=== PATIENT | female | born 1965 | race Caucasian/White ===

== ENCOUNTER → 2018-01-17 09:12 | Outpatient (CLI) | payer OTHER, SELFPAY ==
--- NOTE | 2018-01-17 | DI.MRI.S_ITS ---
PROCEDURE: MR KNEE RT W CON INDICATIONS: MENISCAL TEAR TECHNIQUE: After the administration of 50 mL of dilute intra-articular Gadolinium contrast, sagittal T1 spin echo with fat saturation and PD fast spin echo with fat saturation, coronal T1 spin echo with and without fat saturation, coronal T2 fast spin echo with fat saturation, axial PD fast spin echo with fat saturation through the knee. COMPARISON: [facility], MR, MR KNEE RIGHT WITHOUT CONTRAST, 01/14/2017, 11:25. [facility], , [place] KNEE INJECTION MR/CT RT, 01/17/2018, 9:40. [facility] [place], CR, XR KNEE ARTHRITIC SERIES RT, 01/06/2018, 11:43. FINDINGS: Image quality: Excellent. Menisci: Lateral meniscus appears intact. There is absence of the posterior horn and posterior body of the medial meniscus an area of previous tear suggestive of postsurgical changes. There is mild fraying of the free margin of the medial meniscal body, however no definite intrasubstance gadolinium signal intensity. Cruciate ligaments: The anterior and posterior cruciate ligaments appear intact. Medial structures: The medial collateral ligament appears intact. The posterior oblique ligament, semimembranosus tendon insertions, oblique popliteal ligament, and meniscocapsular junction appear intact. Visualized portions of the pes anserinus tendons appear normal. No abnormal bursal fluid. Lateral structures: The lateral collateral ligament, long and short heads of the biceps femoris tendon appear intact. The popliteus tendon appears normal; the popliteofibular ligament appears intact. The posterosuperior and anteroinferior popliteomeniscal fascicles appear intact. The arcuate and fabellofibular ligaments appear intact around the lateral inferior geniculate artery. Iliotibial band appears normal. Anterior structures: The quadriceps tendon appears intact. Mild lateral patellar tendinopathy. There is also mild superficial infrapatellar subcutaneous edema. Patellar alignment is normal. No femoral trochlear dysplasia or ventral trochlear prominence. No edema in the infrapatellar fat pad. Bone and cartilage: No bone marrow contusions or fractures. The medial compartment, there is diffuse partial thickness loss and surface fraying of the femoral articular cartilage. The tibial cartilage appears grossly intact. Within the lateral compartment, no definite focal articular cartilage defects seen. Within the patellofemoral compartment, there is partial thickness loss of the cartilage overlying the lateral patellar facet and surface fraying of the femoral trochlear cartilage. int space: Innumerable irregular, linear and nodular foci seen involving the suprapatellar recess primarily within the medial aspect. Vega cyst is seen measuring approximately 8.5 cm in cephalocaudad dimension. IMPRESSION: Prominent ill-defined and nodular foci within the medial suprapatellar recess, suggesting severe synovitis and/or debris. Please correlate clinically. Postsurgical changes presumably related to partial medial meniscectomy. Fraying of the free margin of the body although no specific evidence of recurrent tear. Large Vega's cyst. Mild proximal patellar tendinopathy. 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 Dictated by: Marvin Gonzalez M.D. on 01/17/2018 at 12:34 Approved by: Marvin Gonzalez M.D. on 01/17/2018 at 12:55
--- NOTE | 2018-01-17 | DI.RAD.S_ITS ---
PROCEDURE: [place] KNEE INJECTION MR/CT RT INDICATIONS: MENISCAL TEAR TECHNIQUE: The indications, alternatives, benefits, risks, and complications of the procedure were explained to the patient. Written informed consent was obtained and placed in the chart. The knee was examined fluoroscopically, and a site chosen for knee joint injection. The skin was prepped and draped in a sterile fashion, and 1% Lidocaine infiltrated from the skin down to the articular surface. A hypodermic needle was then introduced into the joint and iodinated contrast media was instilled to confirm the intra-articular needle tip placement. This was followed by approximately 50 mL dilute solution of a gadolinium containing MR contrast agent. The needle was removed and a bandage was applied. An Earl wrap was then applied around the knee joint to keep the contrast from collecting in the suprapatellar recess. The patient experienced no complications throughout the procedure and left the fluoroscopic suite in no apparent distress. FINDINGS: Single fluoroscopic spot image demonstrates intra-articular location to injected iodinated contrast. IMPRESSION: Successful fluoroscopically guided administration of dilute Gadolinium solution into the knee joint for MR arthrogram. Dictated by: Marvin Gonzalez M.D. on 01/17/2018 at 13:06 Approved by: Marvin Gonzalez M.D. on 01/17/2018 at 13:07
== END ==
PROVIDERS: Family Provider Internal Medicine Gastroenterology; PCP Internal Medicine Gastroenterology; Visit Provider Orthopaedic Surgery
DX: M17.11 Unilateral primary osteoarthritis, right knee (principal); M71.21 Synovial cyst of popliteal space [Baker], right knee
CPT/HCPCS: 20610; 73722; 77002

== ENCOUNTER 2020-02-12 16:16 | Emergency (ER) | payer BC, SELFPAY ==
[2020-02-12 16:50] VITALS: BP 141/71; PULSE 76; RESP 16; TEMP 37.1; O2SAT 97
--- NOTE | 2020-02-12 16:58 | DI.CT.S_ITS ---
PROCEDURE: CT HEAD/BRAIN WO CON INDICATIONS: Covid +, now w/ visual field disturbance since 1200 02/11/20 TECHNIQUE: Noncontrast 4.5 mm thick angled axial sections acquired from the foramen magnum to the vertex, with coronal and sagittal reformats. For radiation dose reduction, the following was used: automated exposure control, adjustment of mA and/or kV according to patient size. COMPARISON: None. FINDINGS: Image quality: Excellent. CSF spaces: Basal cisterns are patent. No extra-axial fluid collections. Ventricles are normal in size and shape. Brain: No intracranial hemorrhage, mass, or mass effect. Paul-white matter interface appears preserved. Skull and face: Calvarium and visualized facial bones are intact, without suspicious lesions. Sinuses: Visualized sinuses and mastoids are clear. IMPRESSION: 1. No acute intracranial abnormality. Dictated by: Messi Kearns M.D. on 02/12/2020 at 17:24 Approved by: Messi Kearns M.D. on 02/12/2020 at 17:26
--- NOTE | 2020-02-12 17:14 | DI.RAD.S_ITS ---
PROCEDURE: XR CHEST 1V INDICATIONS: flu-like symptoms TECHNIQUE: One view of the chest was acquired. COMPARISON: None. FINDINGS: Surgical changes and devices: None. Lungs and pleura: There are a few patchy indistinct opacities in the lung bases. No pleural effusions or pneumothorax. Mediastinum: Mediastinal contours appear normal. Heart size is normal. Bones and chest wall: No suspicious bony lesions. There is a dextroscoliosis of the thoracolumbar spine. Overlying soft tissues appear unremarkable. IMPRESSION: 1. Patchy indistinct opacities in the lung bases suggestive of atypical pneumonia given clinical history. Dictated by: Messi Kearns M.D. on 02/12/2020 at 17:26 Approved by: Messi Kearns M.D. on 02/12/2020 at 17:27
[2020-02-12 18:04] LABS: Add Manual Diff / Slide Review NO; Basophils Absolute Auto 0 /uL (0-100); Basophils Percent Auto 0.7 % (0-2); Eosinophils Absolute Auto 100 /uL (0-450); Eosinophils Percent Auto 1.9 % (2-4); Hematocrit 41.4 % (36-46); Hemoglobin 14.2 g/dL (12.0-16.0); Lymphocytes Absolute Auto 2000 /uL (1100-4500); Lymphocytes Percent Auto 39.3 % (25-40); Mean Corpuscular HGB Conc 34.3 % (30-36); Mean Corpuscular Hemoglobin 30.3 PG (26-34); Mean Corpuscular Volume 88.2 fL (80-100); Monocytes Absolute Auto 300 /uL (0-900); Monocytes Percent Auto 5.5 % (3-14); Neutrophils Absolute Auto 2700 /uL (1500-7000); Neutrophils Percent Auto 52.6 % (50-75); Platelet Count 268 X10^3/uL (150-400); Red Cell Distribution Width 13.5 % (11.6-14.8); White Blood Cell Count 5.1 X10^3/uL (4.5-11.0)
[2020-02-12 18:13] LABS: INR 1.1 (0.9-1.3); Prothrombin Time 12.2 SECONDS (10.1-12.7)
[2020-02-12 18:15] LABS: PTT Partial Thromboplastin Tim 29 SECONDS (26.4-36.2)
[2020-02-12 18:18] LABS: Alanine Aminotransferase 42 IU/L (<35); Albumin 4.4 g/dL (3.5-5.0); Albumin Globulin Ratio 1.1 (1.0-2.8); Alkaline Phosphatase 66 U/L (38-126); Aspartate Aminotransferase 27 IU/L (14-36); BUN Creatinine Ratio 41.5 (6-22); Bilirubin Total 0.2 mg/dL (0.2-1.3); Blood Urea Nitrogen 22 mg/dL (7-17); Calcium 9.6 mg/dL (8.4-10.2); Carbon Dioxide 30 mmol/L (22-32); Chloride 105 mmol/L (98-107); Creatine Kinase 37 U/L (30-135); Estimated Glomerular Filt Rate > 60.0 mL/min (>60); Glucose 106 mg/dL (70-100); HEMOLYSIS < 15 (0-50); Potassium 3.2 mmol/L (3.4-5.1); Sodium 140 mmol/L (137-145); Total Protein 8.4 g/dL (6.3-8.2)
[2020-02-12 18:20] LABS: C-Reactive Protein Quant 0.7 mg/dL (<1.0); Lactate (Lactic Acid) 1.2 mmol/L (0.7-2.1)
[2020-02-12 18:23] LABS: D Dimer 401 ng/mL (<230)
[2020-02-12 18:27] LABS: NT-proBNP (BNP-Adult 18+) 27 pg/mL (<125)
[2020-02-12 18:30] LABS: Troponin I < 0.012 ng/mL (0.01-0.034)
[2020-02-12 18:53] LABS: Ferritin 100 ng/mL (11-264)
--- NOTE | 2020-02-12 19:29 | ED.NEUROSD ---
HPI - Neuro Symptoms/Deficit General Chief Complaint: Neuro Symptoms/Deficit Stated Complaint: COVID POSTIVE RIGHT SIDE VISION TROUBLE Time Seen by Provider: 02/12/20 18:00 Source: patient Mode of arrival: Ambulatory Limitations: no limitations History of Present Illness HPI Narrative: Patient is a 54-year-old female. Wears corrective lenses however has not had any other surgical intervention to her eye here for evaluation of which she describes as a blurry vision in her right eye. States the symptoms started yesterday. She does not remember exactly what she was doing at the time of the onset however she does not remember going from light to dark were dark to light. She states that is on the extreme peripheral vision in her right eye. His difficult for her to describe what they sensation is. She initially stated that it was flashes of light and then also described it as a blurriness. She states she has been using her phone to try to evaluate the symptoms. However She states that when she places the phone to her extreme right peripheral vision that it does not look blurry. She denies any headaches. No skin changes. No chest pain. No shortness of breath. She did test positive for COVID 8 days ago. She contacted the ophthalmology department today told her that they would not see her for at least 2 weeks after her positive diagnosis. She has not tried anything for her symptoms prior to arrival. Has never had anything like this in the past. Does have a history of headaches which she states this is different than the visual auras that she has had in the past. On Anticoagulants: No Related Data Home Medications Medication Instructions Recorded Confirmed acetaminophen-codeine 1 tab PO PRN PRN #0 05/12/17 amlodipine [Norvasc] 5 mg PO QDAY #0 05/12/17 bupropion HCl [Wellbutrin XL] 150 mg PO QDAY #0 05/12/17 [id number] 1 tab PO PRN #0 05/12/17 estradiol 1 mg PO QDAY #0 05/12/17 hydrochlorothiazide 12.5 mg PO QDAY #0 05/12/17 losartan 100 mg PO QDAY #0 05/12/17 ondansetron HCl [Zofran] 8 mg PO PRN PRN #0 05/12/17 oxycodone-acetaminophen 1 tab PO PRN PRN #0 05/12/17 prochlorperazine [Compro] 25 mg IN PRN PRN #0 05/12/17 rizatriptan [Maxalt] 10 mg PO PRN PRN #0 05/12/17 Previous Rx's Medication Instructions Recorded acetaminophen-codeine 1 tab PO Q4HP PRN #30 tab 05/17/17 Allergies Allergy/AdvReac Type Severity Reaction Status Date / Time No Known Allergies Allergy Uncoded 05/19/17 12:52 Review of Systems Constitutional Constitutional: Denies fatigue, Denies fever(s) and Denies headache(s) Eyes Eyes: Reports change in vision, Denies diplopia, Denies floaters, Denies irritation, Denies eye pain and Reports seeing flashes ENT Ears, Nose, Mouth, and Throat: Denies vertigo, Denies dizziness, Denies headache(s), Denies sinus pressure and Denies sore throat Cardiovascular Cardiovascular: Denies chest pain, Denies lightheadedness and Denies dyspnea Respiratory Respiratory: Denies dyspnea Gastrointestinal Gastrointestinal: Denies abdominal pain, Denies change in bowel habits, Denies nausea and Denies vomiting Genitourinary Genitourinary: Denies dysuria Genitourinary: Denies dysuria Musculoskeletal Musculoskeletal: Denies arthralgias, Denies myalgias and Denies tingling Integumentary/Breasts Skin/Breast: Denies lesions and Denies rash Neurologic Neurologic: Denies abnormal speech, Denies behavioral changes, Denies vertigo, Denies dizziness, Denies syncope, Denies headache(s), Denies localized weakness, Denies memory loss, Denies restless legs, Denies convulsions and Denies tingling Psychiatric Psychiatric: Denies behavioral changes, Denies depression and Denies memory loss Endocrine Endocrine: Denies fatigue Hematologic/Lymphatic Hematologic/Lymphatic: Denies easy bleeding and Denies easy bruising Allergic/Immunologic Allergic/Immunologic: Denies urticaria Patient History Medical History Hypertension Migraine Social History Smoking Status: Never smoker Smoking Status: Never smoker alcohol intake frequency: 0-2 drinks per day Substance Use Type: does not use Exam Initial Vital Signs Initial Vital Signs: Vital Signs Temperature 98.7 F 02/12/20 16:50 Pulse Rate 76 02/12/20 16:50 Respiratory Rate 16 02/12/20 16:50 Blood Pressure 141/71 H 02/12/20 16:50 Pulse Oximetry 97 02/12/20 16:50 Const General: cooperative, comfortable, well developed and well groomed Limitations: mental status not altered HENWY Head: normal to inspection and normocephalic Nose: external nose normal Face and sinus: normal facial exam Eyes General: appearance normal, both eyes and all related structures Alignment and Position: alignment normal Periorbital: periorbital findings normal Eyelids: eyelids normal Conjunctivae: conjunctivae normal Pupils: PERRL EOM: EOM intact bilaterally Resp Effort & Inspection: normal respiratory effort Auscultation: clear to auscultation bilaterally Skin Lesions: no lesions Rashes: no rashes Neuro General: patient alert, patient awake and patient oriented x3 Cranial Nerves: CN's II-XI intact bilaterally Cognition: normal cognition Speech: speech normal Extrem General: capillary refill normal Psych Appearance: grossly normal and well kempt Course Orders Ordered: ED Orders 02/12/20 16:58 CT head/brain wo con Stat 02/12/20 17:14 XR chest 1V Stat 02/12/20 17:56 C-Reactive Protein Quant Stat Complete Blood Count AUTO DIFF Stat Comprehensive Metabolic Panel Stat D Dimer Stat Ferritin Stat Lactate (Lactic Acid) Stat NT-proBNP (BNP-Adult 18+) Stat Partial Thromboplastin Time Stat Prothrombin Time INR Stat Troponin & CK Cardiac Panel Stat Vital Signs Vital signs: Vital Signs - 8 hr 02/12/20 19:50 Pulse Rate 66 Respiratory Rate 18 Blood Pressure 144/69 H Pulse Oximetry 94 MDM - Neuro Symptoms/Deficit Lab Data Attestation: I reviewed the patient's lab results. Result diagrams: 02/12/20 17:56 02/12/20 17:56 Labs: Lab Results 02/12/20 02/12/20 02/12/20 Range/Units 17:56 17:56 17:56 WBC 5.1 (4.5-11.0) X10^3/uL RBC 4.70 (4.0-5.2) X10^6/uL Hgb 14.2 (12.0-16.0) g/dL Hct 41.4 (36-46) % MCV 88.2 (80-100) fL MCH 30.3 (26-34) PG MCHC 34.3 (30-36) % RDW 13.5 (11.6-14.8) % Plt Count 268 (150-400) X10^3/uL Neut % (Auto) 52.6 (50-75) % Lymph % (Auto) 39.3 (25-40) % [place] % (Auto) 5.5 (3-14) % Eos % (Auto) 1.9 L (2-4) % Baso % (Auto) 0.7 (0-2) % Neut # (Auto) 2700 (2007-8775) /uL Lymph # (Auto) 2000 (7625-8965) /uL [place] # (Auto) 300 (0-900) /uL Eos # (Auto) 100 (0-450) /uL Baso # (Auto) 0 (0-100) /uL PT 12.2 (10.1-12.7) SECONDS INR 1.1 (0.9-1.3) APTT 29 (26.4-36.2) SECONDS D-Dimer (<230) ng/mL Sodium 140 (137-145) mmol/L Potassium 3.2 L (3.4-5.1) mmol/L Chloride 105 (98-107) mmol/L Carbon Dioxide 30 (22-32) mmol/L BUN 22 H (7-17) mg/dL Creatinine 0.53 (0.52-1.04) mg/dL Estimated GFR > 60.0 (>60) mL/min BUN/Creatinine Ratio 41.5 H (6-22) Glucose 106 H (70-100) mg/dL Lactate (0.7-2.1) mmol/L Calcium 9.6 (8.4-10.2) mg/dL Ferritin (11-264) ng/mL Total Bilirubin 0.2 (0.2-1.3) mg/dL AST 27 (14-36) IU/L ALT 42 H (<35) IU/L Alkaline Phosphatase 66 (38-126) U/L Total Creatine Kinase 37 (30-135) U/L CK-MB (CK-2) TNP CK-MB (CK-2) Rel Index TNP Troponin I < 0.012 (0.01-0.034) ng/mL C-Reactive Protein (<1.0) mg/dL NT-Pro-B Natriuret Pep (<125) pg/mL Total Protein 8.4 H (6.3-8.2) g/dL Albumin 4.4 (3.5-5.0) g/dL Globulin 4.0 (1.7-4.1) g/dL Albumin/Globulin Ratio 1.1 (1.0-2.8) 02/12/20 02/12/20 02/12/20 Range/Units 17:56 17:56 17:56 WBC (4.5-11.0) X10^3/uL RBC (4.0-5.2) X10^6/uL Hgb (12.0-16.0) g/dL Hct (36-46) % MCV (80-100) fL MCH (26-34) PG MCHC (30-36) % RDW (11.6-14.8) % Plt Count (150-400) X10^3/uL Neut % (Auto) (50-75) % Lymph % (Auto) (25-40) % [place] % (Auto) (3-14) % Eos % (Auto) (2-4) % Baso % (Auto) (0-2) % Neut # (Auto) (3655-9181) /uL Lymph # (Auto) (8772-4035) /uL [place] # (Auto) (0-900) /uL Eos # (Auto) (0-450) /uL Baso # (Auto) (0-100) /uL PT (10.1-12.7) SECONDS INR (0.9-1.3) APTT (26.4-36.2) SECONDS D-Dimer 401 H (<230) ng/mL Sodium (137-145) mmol/L Potassium (3.4-5.1) mmol/L Chloride (98-107) mmol/L Carbon Dioxide (22-32) mmol/L BUN (7-17) mg/dL Creatinine (0.52-1.04) mg/dL Estimated GFR (>60) mL/min BUN/Creatinine Ratio (6-22) Glucose (70-100) mg/dL Lactate 1.2 (0.7-2.1) mmol/L Calcium (8.4-10.2) mg/dL Ferritin 100 (11-264) ng/mL Total Bilirubin (0.2-1.3) mg/dL AST (14-36) IU/L ALT (<35) IU/L Alkaline Phosphatase (38-126) U/L Total Creatine Kinase (30-135) U/L CK-MB (CK-2) CK-MB (CK-2) Rel Index Troponin I (0.01-0.034) ng/mL C-Reactive Protein 0.7 (<1.0) mg/dL NT-Pro-B Natriuret Pep 27 (<125) pg/mL Total Protein (6.3-8.2) g/dL Albumin (3.5-5.0) g/dL Globulin (1.7-4.1) g/dL Albumin/Globulin Ratio (1.0-2.8) Imaging Data CT scan - head: Radiologist's Impression: [address] [id number] Scan ReportSigned Patient: Jennifer Mccormick [facility]#: [id number]: 1965Acct:[id number]/Sex: 54 / FDate of Service: 02/12/20Loc: EDAccession Number: [id number] Procedure: CT head/brain wo con Ordering Provider: Lisa Mendoza D.O. PROCEDURE: CT HEAD/BRAIN WO CON INDICATIONS: Covid +, now w/ visual field disturbance since 1200 02/11/20 TECHNIQUE: Noncontrast 4.5 mm thick angled axial sections acquired from the foramen magnum to the vertex, with coronal and sagittal reformats. For radiation dose reduction, the following was used: automated exposure control, adjustment of mA and/or kV according to patient size. COMPARISON: None. FINDINGS: Image quality: Excellent. CSF spaces: Basal cisterns are patent. No extra-axial fluid collections. Ventricles are normal in size and shape. Brain: No intracranial hemorrhage, mass, or mass effect. Paul-white matter interface appears preserved. Skull and face: Calvarium and visualized facial bones are intact, without suspicious lesions. Sinuses: Visualized sinuses and mastoids are clear. IMPRESSION: 1. No acute intracranial abnormality. Dictated by: Messi Kearns M.D. on 02/12/2020 at 17:24 Approved by: Messi Kearns M.D. on 02/12/2020 at 17:26 Chest x-ray: Radiologist's Impression: [address] [id number] ReportSigned Patient: Jennifer Mccormick [facility]#: [id number]: 1965Acct:[id number]/Sex: 54 / FDate of Service: 02/12/20Loc: EDAccession Number: [id number] Procedure: XR chest 1V Ordering Provider: Lisa Mendoza D.O. PROCEDURE: XR CHEST 1V INDICATIONS: flu-like symptoms TECHNIQUE: One view of the chest was acquired. COMPARISON: None. FINDINGS: Surgical changes and devices: None. Lungs and pleura: There are a few patchy indistinct opacities in the lung bases. No pleural effusions or pneumothorax. Mediastinum: Mediastinal contours appear normal. Heart size is normal. Bones and chest wall: No suspicious bony lesions. There is a dextroscoliosis of the thoracolumbar spine. Overlying soft tissues appear unremarkable. IMPRESSION: 1. Patchy indistinct opacities in the lung bases suggestive of atypical pneumonia given clinical history. Dictated by: Messi Kearns M.D. on 02/12/2020 at 17:26 Approved by: Messi Kearns M.D. on 02/12/2020 at 17:27 ECG Data Attestation: I personally reviewed and interpreted this ECG as follows: Prior ECG tracings: not available for review Interpretation: Sinus rhythm Ventricular rate is 69 Normal axis Normal QRS Normal QTC No ST T wave changes MDM Narrative Medical decision making narrative: Patient has a nonfocal neurologic exam. It is very difficult for her to describe the symptoms that she is having. It sounds like it started with flashes in the extreme right peripheral vision of chest her right eye. Then she describes it as a blurry sensation however it is difficult for her to reproduce even when she is uses her phone has a object for her to look at. Her symptoms go away when she closes her right eye. She attempted to contact the ophthalmology department however they will not see her because of her COVID diagnosis. Her head CT here in the ER is unremarkable. Initially her symptoms sounded very much like a vitreous detachment. Considered other etiologies such as stroke however I feel that this is unlikely. Had a discussion with the patient regarding options. Since she cannot get in to see ophthalmology for at least the next week we discussed admitting the to the hospital for an MRI to further evaluate in the low likelihood of a stroke. This decision was based on the fact that she would not be able to get in to see somebody to evaluate for potential interocular issue in a reasonable amount of time. After this discussion the patient stated that she did not want to be admitted to the hospital. She stated that she felt like it was a ?overkill ?to be admitted to the hospital. Informed her that unfortunately I cannot order an MRI as an outpatient. Patient was concerned about a retinal detachment however her physical exam is not consistent with that. After an extensive discussion with the patient she would like to be discharged and follow-up as an outpatient. She was given return precautions. She expressed understanding and agreement. Discharge Plan Departure Patient Disposition: Home Clinical Impression: Changes in vision Instructions: DI for Visual Field Disturbances Activity Restrictions/Additional Instructions: Recommend that you contact your primary provider for follow-up. I also recommend that you return to the emergency department for any new or worsening symptoms like we discussed. Continue all of your medications as directed. Prescriptions: No Action ondansetron HCl [Zofran] 8 MG tablet 8 mg PO PRN PRNQty: 0 RF: 0 prochlorperazine [Compro] 25 MG suppository 25 mg IN PRN PRNQty: 0 RF: 0 bupropion HCl [Wellbutrin XL] 150 MG tablet extended release 24 hr 150 mg PO QDAY Qty: 0 RF: 0 acetaminophen-codeine 30 MG/300 MG tablet 1 tab PO PRN PRNQty: 0 RF: 0 oxycodone-acetaminophen 5 MG/325 MG tablet 1 tab PO PRN PRNQty: 0 RF: 0 rizatriptan [Maxalt] 10 MG tablet 10 mg PO PRN PRNQty: 0 RF: 0 [id number]-gtrftmmagsqph-lhml 1 EACH tablet 1 tab PO PRNQty: 0 RF: 0 estradiol 1 MG tablet 1 mg PO QDAY Qty: 0 RF: 0 amlodipine [Norvasc] 5 MG tablet 5 mg PO QDAY Qty: 0 RF: 0 hydrochlorothiazide 12.5 MG capsule 12.5 mg PO QDAY Qty: 0 RF: 0 losartan 100 MG tablet 100 mg PO QDAY Qty: 0 RF: 0 acetaminophen-codeine 30 MG/300 MG tablet 1 tab PO Q4HP PRNQty: 30 RF: 0 Referrals: Sourav Crane MD [Primary Care Provider] - Stand Alone Forms: Work Release Note
[2020-02-12 19:50] VITALS: BP 144/69; PULSE 66; RESP 18; O2SAT 94
== END 2020-02-12 19:51 | disposition home or self-care (01) ==
PROVIDERS: Emergency Medicine; Emergency Provider Emergency Medicine; Family Provider Internal Medicine Gastroenterology; PCP Internal Medicine Gastroenterology
DX: H53.9 Unspecified visual disturbance (principal); U07.1 COVID-19; I10 Essential (primary) hypertension
CPT/HCPCS: 36415; 70450; 71045; 80053; 82550; 82728; 83605; 83880; 84484; 85025; 85379; 85610; 85730; 86140; 93005; 99284